=== PATIENT | female | born 1995 | race African-American/Black ===

== ENCOUNTER 2019-08-24 14:48 | Observation (INO) | payer SELFPAY ==
[~2019-08-24] VITALS: Ht 165.1 cm; Wt 103.4 kg
[2019-08-24] MEDS ORDERED: ACETAMINOPHEN 500MG TABLET PO NR (15:30)
[2019-08-24] MEDS: LACTATED RINGERS 1,000 ML IV SCH ×2 (15:53→18:10)
[2019-08-24 16:11] LABS: CLARITY URINE TURBID (CLEAR); COLOR URINE YELLOW (YELLOW); KETONES URINE TRACE (NEGATIVE); LEUKOCYTE ESTERASE URINE 3+ (NEGATIVE); NITRITE URINE NEGATIVE (NEGATIVE); OCCULT BLOOD URINE TRACE (NEGATIVE); PROTEIN URINE 1+ (NEGATIVE); SPECIFIC GRAVITY URINE 1.026 (1.005-1.030); UROBILINOGEN URINE 0.2 E.U./dL (0.2-1.0)
[2019-08-24 16:11] LABS: BASOPHILS % 0.3 % (0.0-2.0); EOSINOPHILS % 0.5 % (0.0-5.0); HEMATOCRIT. 35.3 % (36.0-48.0); HEMOGLOBIN. 11.7 g/dL (12.0-16.0); LYMPHOCYTES % 10.8 % (20.0-50.0); MEAN CORPUSCULAR VOLUME 87.4 fL (81.0-99.0); MEAN PLATELET VOLUME 9.9 fl (7.4-10.4); MONOCYTES % 8.7 % (2.0-8.0); NEUTROPHILS % 79.7 % (40.0-76.0); PLATELET 236 x1000/uL (130-400); RED BLOOD CELL COUNT 4.03 mill/uL (4.2-5.4); RED CELL DISTRIBUTION WIDTH 13.6 % (11.6-14.6)
[2019-08-24 17:06] LABS: CHLORIDE 106 mEq/L (98-107)
[2019-08-24] MEDS ORDERED: CEFAZOLIN 2,000 MG in DEXT 5% WATER 100 ML IV NR (18:00)
[2019-08-24] MEDS ORDERED: FLUCONAZOLE 150MG TABLET PO ONE (19:00)
== END 2019-08-24 20:15 | disposition home or self-care (01) ==
LOC: 8 EST LDRP 14:48
PROVIDERS: ADMIT Obstetrics & Gynecology; ATTEND Obstetrics & Gynecology
DX: O21.2 Late vomiting of pregnancy (principal); O26.892 Other specified pregnancy related conditions, second trimester; R42 Dizziness and giddiness; R51 Headache; R10.9 Unspecified abdominal pain; Z3A.26 26 weeks gestation of pregnancy
CPT/HCPCS: 36415; 76805; 76817; 80053; 81003; 85025; 87086; 96365; G0378; J0690; J7060; 96361

== ENCOUNTER 2019-08-24 21:19 | Emergency (ER) | payer SELFPAY ==
[~2019-08-24] VITALS: Ht 165.1 cm; Wt 108.0 kg
[2019-08-25] MEDS ORDERED: ACETAMINOPHEN 325MG TABLET PO STA (03:02)
[2019-08-25 10:28] LABS: CLARITY URINE CLOUDY (CLEAR); COLOR URINE YELLOW (YELLOW); KETONES URINE TRACE (NEGATIVE); LEUKOCYTE ESTERASE URINE 3+ (NEGATIVE); NITRITE URINE NEGATIVE (NEGATIVE); OCCULT BLOOD URINE NEGATIVE (NEGATIVE); PROTEIN URINE TRACE (NEGATIVE); UROBILINOGEN URINE 0.2 E.U./dL (0.2-1.0)
[2019-08-25 11:40] VITALS: BP 120/78
== END 2019-08-25 11:44 | disposition home or self-care (01) ==
LOC: ER 21:19
DX: O99.343 Other mental disorders complicating pregnancy, third trimester (principal); F41.9 Anxiety disorder, unspecified; Z3A.26 26 weeks gestation of pregnancy; Z87.440 Personal history of urinary (tract) infections; Z59.0 Homelessness
CPT/HCPCS: 81003; 81025; 96360; 96361; 96365; 99281; 99283; 99284